=== PATIENT | female | born 1970 | race Caucasian/White ===

== ENCOUNTER → 2018-06-01 10:10 | Outpatient (CLI) | payer OTHER, SELFPAY ==
--- NOTE | 2018-06-01 10:19 | RAD_ITS ---
STUDY: X-RAY - RIGHT CALCANEUS REASON FOR EXAM: Female, 48 years old. Trauma TECHNIQUE: 2 view(s) of the calcaneus were obtained. COMPARISON: None. FINDINGS: Normal visualized calcaneus. RAD/Calcaneus min 2 Views IMPRESSION: Normal x-ray examination of the calcaneus. Electronically Signed: Velasquez Jordan MD at 17:15 EDT , Service support ,
== END ==
PROVIDERS: Family Provider Family Medicine; PCP Family Medicine; Referring Provider Family Medicine; Visit Provider Family Medicine
DX: M79.673 Pain in unspecified foot (principal)
CPT/HCPCS: 73650

== ENCOUNTER → 2018-07-08 15:15 | Outpatient (CLI) | payer OTHER, SELFPAY ==
[2018-07-08 17:46] LABS: Vitamin D,25 Hydroxy 12.8 ng/mL (29.95-100.01)
[2018-07-08 17:50] LABS: Anion Gap 8 (5-15); BUN 15 mg/dL (7-18); BUN/Creat Ratio 20.5 RATIO (10-20); Calcium,Total 8.4 mg/dL (8.5-10.1); Chloride 105 mmol/L (98-107); Cholesterol 174 mg/dL (200); Creatinine, Serum 0.73 mg/dL (0.55-1.02); EST Glomerular Filtration Rate 90 mL/min (>60); Est Glom Filt Rate - Afr Amer 109 mL/min (>60); Glucose 90 mg/dL (74-106); High Density Lipoprotein 60 mg/dL; Potassium 4.2 mmol/L (3.5-5.1); Sodium Level 140 mmol/L (136-145); Thyroid Stim Hormone (TSH) 1.11 uIU/mL (0.358-3.74); Triglycerides 238 mg/dL; Very Low Density Lipoprotein 48 mg/dL (5-40)
== END ==
PROVIDERS: Family Provider Family Medicine; PCP Family Medicine; Visit Provider Family Medicine
DX: Z00.00 Encounter for general adult medical examination without abnormal findings (principal)
CPT/HCPCS: 36415; 80048; 80061; 82306; 84443

== ENCOUNTER → 2018-07-08 19:00 | Outpatient (CLI) | payer OTHER, SELFPAY ==
[2018-07-13 10:53] LABS: HPV Reflexed? NOT INDICATED
== END ==
PROVIDERS: Family Provider Family Medicine; PCP Family Medicine; Referring Provider Family Medicine; Visit Provider Family Medicine
DX: Z01.419 Encounter for gynecological examination (general) (routine) without abnormal findings (principal)
CPT/HCPCS: 88175; G0145

== ENCOUNTER → 2018-08-25 14:51 | Outpatient (CLI) | payer OTHER, SELFPAY ==
[2016-02-09 14:07] VITALS: BMI 23.1
--- NOTE | 2018-08-25 14:54 | BI_ITS ---
MAMMOGRAPHY - BILATERAL SCREENING 3-D FRIDA SYNTHESIS REASON FOR EXAM: Female, 48 years old. Bilateral Screening 3-D tomosynthesis PERTINENT HISTORY: No significant family history. TECHNIQUE: 2-D mammograms and 3-D Frida synthesis of the breast (s) were performed. CAD was performed. COMPARISON: December 04, 2009 FINDINGS: The breast composition is almost entirely fat. There are stable lymph nodes. Scattered benign calcifications are seen. No dense spiculated masses or suspicious microcalcifications are identified. No architectural distortion is identified. There is no skin thickening or retraction. There has been no significant change since the prior study. BI/SCREENING MAMM (CAD), BILAT IMPRESSION: No mammographic signs of malignancy. Routine yearly mammograms recommended. ASSESSMENT CATEGORY: BIRADS Category 2: Benign. A letter regarding these results will be sent to the patient by the facility within 30 days. FOLLOW UP RECOMMENDATION: Yearly follow up mammogram recommended. (A) Approximately 10% of breast cancers are not detected by mammography. A normal mammogram should not delay biopsy of a clinically suspicious abnormality. Electronically Signed: Keith Valle MD at 10:32 EST , Service support ,
== END ==
PROVIDERS: Family Provider Family Medicine; PCP Family Medicine; Visit Provider Family Medicine
DX: Z12.31 Encounter for screening mammogram for malignant neoplasm of breast (principal)
CPT/HCPCS: 77063; 77067

== ENCOUNTER → 2019-02-25 | Outpatient (CLI) | payer OTHER, SELFPAY ==
--- NOTE | 2019-02-25 07:44 | MRI_ITS ---
STUDY: MRI RIGHT SHOULDER REASON FOR EXAM: Female, 48 years old. Lifting injury 6 months ago with right shoulder pain radiating into forearm and neck. Limited range of motion. TECHNIQUE: Standardized fat and water weighted pulse sequences were obtained in all 3 orthogonal planes. COMPARISON: None. FINDINGS: Full thickness full width retracted supraspinatus tendon tear with the tendon retracted approximately 4 cm medially (coronal series 6 images 12-16). Infraspinatus tendinosis with full-thickness partial width tear of the anterior fibers with marked thinning/attenuation of the posterior fibers (coronal series 6 images 7-10). Subscapularis tendinosis without a full-thickness tear (axial series 3 images 10-14). Normal teres minor tendon. Normal supraspinatus muscle. Normal infraspinatus muscle. Normal subscapularis muscle. Normal teres minor muscle. Moderate arthrosis of the glenohumeral joint with a large glenohumeral joint effusion (axial series 3 image 10-16). Cystic change in the humeral head (coronal series 6 image 9). Superior migration of the humeral head (coronal series 6 image 13). Normal biceps labral complex. Normal intracapsular long biceps tendon. Normal labrum. Normal capsulo- ligamentous complex. Normal rotator interval. Acromioclavicular joint hypertrophy with narrowing of the subacromial space (coronal series 6 images 11-15). There is a Type II morphology (curved), with a neutral orientation. Fluid in the subacromial-subdeltoid bursa (coronal series 6 images 7-15). Normal visualized coracohumeral and coracoacromial ligaments. Normal quadrilateral space. Normal axillary space. Normal deltoid muscle. Normal trapezius muscle. MRI/Upper Ext Joint Only(Routine) IMPRESSION: Full thickness full width retracted supraspinatus tendon tear. Infraspinatus tendinosis with a full-thickness partial width tear of the anterior fibers and marked thinning/attenuation of the posterior fibers. Subscapularis tendinosis without a full-thickness tear. Moderate arthrosis of the glenohumeral joint. Superior migration and cystic change of the humeral head. Acromioclavicular joint hypertrophy with narrowing of the subacromial space. Large glenohumeral joint effusion with fluid in the subacromial-subdeltoid bursa. Electronically Signed: Keith Valle MD at 13:58 EDT , Service support ,
== END | disposition home or self-care (01) ==
LOC: MRI 07:40
PROVIDERS: Family Provider Family Medicine; PCP Family Medicine; Referring Provider Family Medicine; Visit Provider Family Medicine
DX: M25.511 Pain in right shoulder (principal)
CPT/HCPCS: 73221

== ENCOUNTER 2019-03-05 17:08 | Emergency (ER) | payer OTHER, SELFPAY ==
[2019-03-05 17:09] VITALS: BP 136/86; PULSE 104; RESP 18; TEMP 36.9; O2SAT 98; BMI 28.2
--- NOTE | 2019-03-05 17:20 | ED.RN ---
PT REPORTS STARTED YESTERDAY. REDDNESS 3 INCHES TALL AND WRAPPS AROUND ANKLE. SWELLING REDDNES WITH DEEP RED SPOTS.
--- NOTE | 2019-03-05 17:28 | ED.DCSUM_ITS ---
- ER Visit Summary Date of Service: 03/05/19 Chief Complaint: [Redness and swelling to right leg] History of Present Illness: The patient is a 48 F [presents to the emergency department with redness to her leg that started yesterday. Patient states initially she had some edema but that is since resolved. She denies recent travel or surgery. She denies any trauma to her leg. Patient states that she has had cellulitis in that leg before and it reminds her of that event. Patient was working in the yard yesterday however she denies coming in contact with any weeds or poison lakshmi. Patient has not had a fever at home although subjectively she is felt somewhat warm and chilled. Patient claims allergy to Keflex from the time she was a child and she is not really sure exactly what the reaction was.] Physical Examination: [HEENT-PERRLA, EOMI. Cranial nerves II through XII hang sly intact. TMs clear. Mucous membranes moist. No adenopathy. Cardiovascular-regular rate and rhythm without murmur or ectopy Lungs-clear to auscultation, chest wall stable without crepitus or subcu emphysema Abdomen-normoactive bowel sounds, soft, nontender, no rebound or rigidity, no peritoneal signs. Extremities-intact ?4, normal range of motion, normal pulses, atraumatic. Right leg-patient has erythema to the distal third of the right lower leg and ankle. There is warmth noted. No edema is noted. No abscess noted. She is neurovascular intact.] Test Results: [None indicated] Emergency Department Course and Treatment: [Patient was given a dose of clindamycin p.o. Patient is not ill or toxic appearing therefore I feel we can manage this initially as an outpatient. Patient had the area of erythema outlined in permanent marker. Patient was advised to return if fever, increased pain, or extension of the erythema beyond the line of demarcation.] Treatment Plan: [Patient will be treated with clindamycin and advised to follow- up with her primary care physician within the next 2 to 3 days for wound check. Patient to return if fever, worsening pain, increased erythema, or conditions worsen anyway.] Disposition: [Discharged home in stable condition.] Impression: [Cellulitis right lower extremity] This note was generated with [employer] dictation software. It may contain incorrect words, spelling, and punctuation that were not noted in review of the chart prior to signing ED Disposition - Plan for ED Patient: Referrals: Escobar Farias MD [Primary Care Provider] -
--- NOTE | 2019-03-05 17:31 | ED.DEP ---
ED Disposition - Plan for ED Patient: Instructions: Cellulitis Prescriptions: Clindamycin HCl [Cleocin] 300 mg PO Q6H #40 cap Prescription Printed Referrals: Escobar Farias MD [Primary Care Provider] - 2 Days
[2019-03-05] MEDS: Clindamycin HCl 150 MG Capsule 300 MG PO (17:38)
== END 2019-03-05 17:40 | disposition home or self-care (01) ==
LOC: ED 17:36
PROVIDERS: Emergency Provider Emergency Medicine; Family Provider Family Medicine; PCP Family Medicine
DX: L03.115 Cellulitis of right lower limb (principal); K21.9 Gastro-esophageal reflux disease without esophagitis; Z72.0 Tobacco use; Z79.899 Other long term (current) drug therapy
CPT/HCPCS: 99283

== ENCOUNTER 2022-12-11 16:45 | Emergency (ER) | payer OTHER, SELFPAY ==
[2022-12-11 16:46] VITALS: BP 122/76; PULSE 70; RESP 16; TEMP 36.6; O2SAT 99; BMI 27.1
--- NOTE | 2022-12-11 17:11 | EDS_ITS ---
HPI History of Present Illness HPI Narrative: Patient presents with right knee, thigh, and hip pain that began after a fall last night. Patient states she was at work when she slipped on the wet ground and twisted her knee and hip. Patient describes her pain as aching. Patient states her pain is worse with weightbearing and with internal rotation. Patient states it is better with external rotation. Patient denies any paresthesias or weakness. Patient denies any head injury or loss of consciousness. Patient denies any other injuries. Chief Complaint: Lower Extremity Injury Informant: patient Onset/Context/Timing Onset: Yesterday Context: Sudden Onset Timing: Continuous Quality of Pain: Aching Location: Right knee, thigh, and right hip Worsened by: Weightbearing, internal rotation Relieved by: External rotation Associated Symptoms Associated Symptoms: Negative for Parasthesia, Weakness or Loss of Funtion PFSH PFSH Home Medications cyanocobalamin (vitamin B-12) 2,500 mcg tablet 2,500 mcg PO DAILY 02/09/16 [History Last Taken Unknown] omeprazole 40 mg capsule,delayed release 40 mg PO DAILY 02/09/16 [History Last Taken Unknown] clindamycin HCl 300 mg capsule 300 mg PO Q6H #40 caps 03/05/19 [Rx Last Taken Unknown] naproxen 500 mg tablet (Naprosyn) 500 mg PO BID PRN pain #20 tabs 12/11/22 [Rx Last Taken Unknown] Allergy/AdvReac Type Severity Reaction Status Date / Time cephalexin monohydrate Allergy Other Verified 12/11/22 16:51 [From Keflex] Surgical History History of appendectomy Hx laparoscopic cholecystectomy muscle transfer Social History Smoking Status: Current every day smoker tobacco type: cigarettes ROS ROS ED Constitutional Constitutional ED: Denies chills or fever(s) Eyes Eyes: Denies blurry vision or change in vision ENT ENT ED: Denies rhinorrhea or sore throat Cardiovascular Cardiovascular: Denies chest pain or palpitations Respiratory/Chest Respiratory/Chest: Denies cough or dyspnea Gastrointestinal Gastrointestinal: Denies nausea or vomiting Genitourinary Genitourinary ED: Denies dysuria or hematuria Musculoskeletal Musculoskeletal: Denies back pain or neck pain Integumentary Denies abscess or rash Neurologic Neurologic: Denies headache(s) or weakness Allergic/Immunologic Allergic/Immunologic ED: Denies mouth swelling or urticaria EXAM Physical Exam Const Vital Signs: 12/11/22 16:46 Temperature 97.8 F Temperature Source Temporal Pulse Rate 70 Respiratory Rate 16 Blood Pressure 122/76 H Blood Pressure Mean 91 Pulse Ox 99 Oxygen Delivery Method Room Air Positive well nourished and well developed General Appearance ED: well developed HEENT Reports moist mucous membranes Neck full ROM and supple Extremity Extremity Narrative: There is tenderness over the right knee and distal thigh. There is also some mild tenderness over the right hip. There is no obvious deformity noted. There is some pain with internal rotation of the right lower extremity. There is also pain with flexion of the knee. There is no bony crepitance or step-off. Pedal pulses are equal bilaterally. Sensation was intact to light touch bilaterally in the lower extremities. Strength is 5/5 bilaterally in the lower extremities. Neuro oriented x3, CN's II-XII intact bilaterally, moves all extremities and no sensory deficits noted Sensorium / Orientation: alert Motor Exam: strength 5/5 throughout Psych mental status grossly normal Skin no wounds MDM MDM MDM Narrative Medical decision making narrative: Differential diagnosis includes right knee sprain, internal derangement of the knee, fracture, right hip fracture, right hip strain, and right thigh strain. X-rays of the right knee and right hip will be obtained to assess for fracture. Radiography Diagnostic Testing: Clinical Impression(s) from Imaging Studies Knee X-Ray 12/11/22 17:16 IMPRESSION: No acute fracture or dislocation of the right knee. Electronically Signed: Andrea Bass DO at 18:03 EDT Reading Location ID and State: [employer] [facility] [employer] Tel [phone], Service support , Hip/Pelvis X-Ray 12/11/22 17:46 IMPRESSION: Normal x-ray examination of the pelvis and right hip. Electronically Signed: Andrea Bass DO at 18:02 EDT Reading Location ID and State: [employer] / [place] Tel [phone], Service support , X-rays of the right knee were obtained. There are 4 views. On my independent interpretation, there is no acute fracture. There is no dislocation. There is no soft tissue swelling. Radiologist also interpreted the x-rays and agrees. X-rays of the right hip were obtained. There are [3] views. On my independent interpretation, there is no acute fracture. There is no dislocation. There is no soft tissue swelling. Radiologist also interpreted the x-rays and agrees. Treatment and Re-Evaluation Narrative: Patient was advised of her findings. Patient was advised that this is most likely a muscular strain. Patient was instructed to use ice to the area. Patient was given crutches. Patient was given a prescription for Naprosyn. Patient was instructed to follow-up with her primary care physician in 5 to 7 days. Patient was also instructed to follow-up with the [facility] in case her primary care physician does not accept Workmen's Comp. Patient understands and is agreeable with the plan. All questions were answered. Discharge Plan Triage Chief Complaint: Lower Extremity Injury ED Provider: Danial Henderson Dx/Rx/DC Orders Clinical Impression: Right knee sprain, Strain of right hip, Fall Instructions: ED Hip Strain, ED Knee Sprain Prescriptions: New naproxen [Naprosyn] 500 mg tablet 500 mg PO BID PRN (Reason: pain) Qty: 20 0RF No Action omeprazole 40 MG capsule 40 mg PO DAILY cyanocobalamin (vitamin B-12) 2,500 MCG tablet 2,500 mcg PO DAILY clindamycin HCl 300 MG capsule 300 mg PO Q6H Qty: 40 0RF Primary Care Provider: Escobar Farias Referrals: Escobar Farias MD [Primary Care Provider] - 5-7 Days [facility] [Non-Staff] - 5-7 Days Disposition Disposition: Home, Self Care
--- NOTE | 2022-12-11 17:16 | RAD_ITS ---
STUDY: X-RAY - RIGHT KNEE REASON FOR EXAM: Female, 52 years old. Fall last night. Knee pain. 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 TECHNIQUE: 4 view(s) of the knee. COMPARISON: None. FINDINGS: Normal visualized distal femur. Normal visualized proximal tibia and fibula. Normal proximal tibiofibular articulation. There is no acute fracture, dislocation or destructive osseous pathology. Normal medial femorotibial compartment. Normal lateral femorotibial compartment. Normal patellofemoral articulation. There are surgical clips posterior to the tibial plateau. The soft tissues appear otherwise unremarkable. RAD/Knee 4 or More Views IMPRESSION: No acute fracture or dislocation of the right knee. Electronically Signed: Andrea Bass DO at 18:03 EDT ,
--- NOTE | 2022-12-11 17:46 | RAD_ITS ---
STUDY: X-RAY - PELVIS AND RIGHT HIP REASON FOR EXAM: Female, 52 years old. Fall last night. Right hip and knee pain. TECHNIQUE: 3 views of the pelvis and hip. COMPARISON: None. FINDINGS: There is a non-specific bowel gas pattern. Normal visualized soft tissue structures. Normal bilateral iliac wings, sacroiliac joints and visualized sacrum. Normal bilateral superior and inferior pubic rami. Normal pubic symphysis. Normal bilateral ischial tuberosities. Normal left hip. Normal visualized right femoral head. Normal right acetabulum. Normal right hip joint. RAD/HIP, UNI W/ Pelvis 2-3 Views IMPRESSION: Normal x-ray examination of the pelvis and right hip. Electronically Signed: Andrea Bass DO at 18:02 EDT ,
[2022-12-11 19:29] VITALS: PULSE 82; RESP 16; O2SAT 98
== END 2022-12-11 19:29 | disposition home or self-care (01) ==
PROVIDERS: Emergency Provider Emergency Medicine; PCP Family Medicine; Visit Provider Emergency Medicine
DX: S83.91XA Sprain of unspecified site of right knee, initial encounter (principal); S73.101A Unspecified sprain of right hip, initial encounter; M79.651 Pain in right thigh; F17.210 Nicotine dependence, cigarettes, uncomplicated; W01.0XXA Fall on same level from slipping, tripping and stumbling without subsequent striking against object, initial encounter; Y99.0 Civilian activity done for income or pay
CPT/HCPCS: 73502; 73564; 99283

== ENCOUNTER 2023-11-16 21:10 | Emergency (ER) | payer MEDICAID, SELFPAY ==
[2023-11-16 21:11] VITALS: BP 152/89; PULSE 86; RESP 15; TEMP 36.6; O2SAT 100; BMI 23.3
--- NOTE | 2023-11-16 22:10 | RAD_ITS ---
EXAM: XR LEFT ELBOW COMPLETE, 3 OR MORE VIEWS CLINICAL INDICATION: pain TECHNIQUE: Frontal, lateral and oblique views of the left elbow. COMPARISON: No relevant prior studies available. FINDINGS: BONES/JOINTS: Unremarkable. There is no displacement of the anterior or posterior fat pads. No acute fracture. No subluxation. Normal alignment. Preservation of the joint space. No destructive or sclerotic lesions. SOFT TISSUES: Unremarkable. No soft tissue swelling or gas. No radiopaque foreign body. RAD/Elbow min 3 Views IMPRESSION: Negative left elbow. Electronically Signed: Selvin Cash MD at 22:21 EDT ,
--- NOTE | 2023-11-16 22:10 | EDS_ITS ---
HPI History of Present Illness Chief Complaint: Upper Extremity Injury Informant: patient Narrative Narrative: 53-year-old female presenting to the emergency room with left forearm elbow pain. 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 She began to have some pain in the lateral posterior left forearm extending just to the posterior aspect of the distal arm. She has pain with pronation supination. She states she was doing conservative treatments at home with ice and heat. Last week she used a pair staple gun requiring her to do a lot of squeezing the hand. Over the weekend she had increased pain. She is co ncerned she may have a fracture. [facility] Medical History (Updated 11/16/23 @ 22:[address] Elpidio Iniguez DO) History of gastroesophageal reflux (GERD) Home Medications cyanocobalamin (vitamin B-12) 2,500 mcg tablet 2,500 mcg PO DAILY 02/09/16 [History Last Taken Unknown] omeprazole 40 mg capsule,delayed release 40 mg PO DAILY 02/09/16 [History Last Taken Unknown] clindamycin HCl 300 mg capsule 300 mg PO Q6H #40 caps 03/05/19 [Rx Last Taken Unknown] naproxen 500 mg tablet (Naprosyn) 500 mg PO BID PRN pain #20 tabs 12/11/22 [Rx Last Taken Unknown] ibuprofen 600 mg tablet 600 mg PO Q8H #21 TABLETS 11/16/23 [Rx Last Taken Unknown] Allergy/AdvReac Type Severity Reaction Status Date / Time cephalexin monohydrate Allergy Other Verified 11/16/23 21:13 [From Keflex] Surgical History History of appendectomy Hx laparoscopic cholecystectomy muscle transfer Social History Smoking Status: Current every day smoker tobacco type: cigarettes ROS ROS ED Constitutional Constitutional ED: Denies chills or weight loss Eyes Eyes: Denies change in vision or diplopia ENT ENT ED: Denies ear pain, rhinorrhea or sore throat Cardiovascular Cardiovascular: Denies chest pain, orthopnea, palpitations or racing heartbeat Respiratory/Chest Respiratory/Chest: Denies cough, dyspnea or orthopnea Gastrointestinal Gastrointestinal: Denies abdominal pain, diarrhea, nausea or vomiting Genitourinary Genitourinary ED: Denies dysuria, hematuria or urinary frequency Musculoskeletal Musculoskeletal: Reports other Details: See history of present illness ; Denies arthralgias, back pain, myalgias or neck pain Integumentary Denies abscess or rash Neurologic Neurologic: Denies headache(s) or weakness Psychiatric Psychiatric: Denies anxiety, depression, suicidal ideation or suicidal thoughts Endocrine Endocrinology: Denies polydipsia, polyphagia or polyuria Allergic/Immunologic Allergic/Immunologic ED: Denies mouth swelling, tongue swelling or urticaria EXAM Physical Exam Const Vital Signs: 11/16/23 21:11 Temperature 97.8 F Temperature Source Temporal Pulse Rate 86 Respiratory Rate 15 Blood Pressure 152/89 H Blood Pressure Mean 110 Pulse Ox 100 Oxygen Delivery Method Room Air Positive well nourished and well developed General Appearance ED: well developed HEENT Reports normocephalic, head/scalp atraumatic and moist mucous membranes Eyes PERRL and EOMs intact bilaterally Neck no lymphadenopathy, supple and no JVD Resp normal respiratory effort and clear to auscultation bilaterally Cardio regular rate, regular rhythm and no murmurs GI normal to inspection, nondistended, normoactive bowel sounds and non-tender Palpation: soft Back/Spine no CVA tenderness and normal ROM Extremity Extremity Narrative: Left arm is neurovascularly intact with strong radial and ulnar pulses. Sensations normal. She has tenderness along the brachial radialis tendon and muscle belly most significant in the distal belly but also some tenderness near the insertion of the muscle. There is no significant edema of the hand. Normal capillary refill. General Extremety ED: Negative for edema General Extremity: Negative for edema Neuro oriented x3 and CN's II-XII intact bilaterally Sensorium / Orientation: alert Motor Exam: strength 5/5 throughout Psych mental status grossly normal Mood & Affect: Negative for depressed or tearful Skin no rashes or lesions noted and no wounds MDM MDM MDM Narrative Medical decision making narrative: My independent interpretation of the plain films of the three-view elbow x-ray is no acute fracture. Radiology overread concurs. Clinically I think this is b rachial radialis tendinitis. We talked about rest ice compression stretching and conservative treatment. Is most likely going to be difficult for her to rested given her job. If conservative treatments not working she may benefit from physical therapy or orthopedic follow-up. She can follow-up with her primary care doctor to see how this is progressing History & Record Review Discussion w/independent historian: Patient Discharge Plan Triage Chief Complaint: Upper Extremity Injury ED Provider: Elpidio Iniguez Dx/Rx/DC Orders Clinical Impression: Left forearm pain, Left elbow tendinitis Instructions: ED Tendonitis Prescriptions: New ibuprofen 600 mg tablet 600 mg PO Q8H Qty: 21 0RF Rx Instructions: take with food No Action omeprazole 40 MG capsule 40 mg PO DAILY cyanocobalamin (vitamin B-12) 2,500 MCG tablet 2,500 mcg PO DAILY clindamycin HCl 300 MG capsule 300 mg PO Q6H Qty: 40 0RF naproxen [Naprosyn] 500 mg tablet 500 mg PO BID PRN (Reason: pain) Qty: 20 0RF Primary Care Provider: Care Physician,No Primary Referrals: Escobar Farias MD [Med Staff - Active Staff] - 1-2 Weeks Activity Restrictions/Additional Instructions: Today I feel you have a brachialradialis tendinitis. Home treatment as we discussed. You may benefit from a stabilizer strap (look for tennis elbow treatments) Disposition Disposition: Home, Self Care
--- OUTSIDE RECORDS SUMMARY | 2023-11-16 22:26 | XMS RPT_ITS | CCD ---
Author Name Unknown Address [address] [place] [id number] Organization [facility] Care Team Providers Care Call Center Dispatcher Name Role Phone Unavailable Primary Care Provider JEANNINE Portillo Attending Unavailable Allergies Allergy Classification Reported Allergen(s) Allergy Type Date of Onset Reaction(s) Facility (2 sources) Cephalexin; Translations: [CEPHALEXIN] Drug Allergy 12-11-2022 Other: See Comments [facility] Medications Current Medications Medication Drug Class(es) Dates Sig (Normalized) Sig (Original) nitrofurantoin, macrocrystals 25 mg / nitrofurantoin, monohydrate 75 mg oral capsule (1 source) Nitrofuran Antibacterial Start: 08-11-2023 End: 08-18-2023 take 1 capsule by mouth twice daily nitrofurantoin monohydrate and macrocrystal (MACROBID) 100 mg capsule Indications: Dysuria Take 1 capsule by mouth two times a day for 7 days. 14 capsule 0 08/11/2023 08/18/2023 Active Completed/Discontinued Medications Medication Drug Class(es) Dates Sig (Normalized) Sig (Original) FLUoxetine 40 mg oral capsule (1 source) Serotonin Reuptake Inhibitor take 1 capsule by mouth once daily FLUoxetine (PROZAC) 40 mg capsule Take 40 mg by mouth once daily. 0 Active Problems Problem Classification Problem Date Documented Da te Episodic/Chronic Genitourinary symptoms and ill-defined conditions (1 source) Dysuria; Translations: [Dysuria] Onset: 08-09-2023 Episodic Results Test Name Value Interpretation Reference Range Facil ity Encounters Encounter Date Encounter Type Care Provider Facility Start: 08-11-2023 Telephone encounter Yariel Whitehead MD Work Phone: [facility] Plan of Treatment Date Care Activity Detail Author Start: 07-08-2028 Urine microalbumin profile DTa P,Tdap,Td Vaccine (2 - Td or Tdap) [facility] Start: 05-08-2023 Covid-19 Vaccine ( season) Covid-19 Vaccine ( season) [facility] Start: 05-08-2023 Influenza vaccination Influenza Vacc ine (#1) [facility] Start: 09-07-2022 Depression Assessment Depression Ass essment [facility] Start: 2020 Shingrix Vaccine (1 of 2) Shingrix V accine (1 of 2) [facility] Start: 2015 Cologuard (FIT-DNA) Cologuard (FIT-D NA) [facility] Start: 2015 Colonoscopy Colonoscopy [facility] Start: 2015 Colorectal Cancer Screening Colorectal Cancer Screening [facility] Start: [address] Colonography [facility] Start: 2015 Diabetes Screening Diabetes Screenin g [facility] Start: 2015 Fecal Occult Blood Fecal Occult Bloo d [facility] Start: 2015 Lipid 1996 panel - S jigna or Plasma Lipid Screening [facility] Start: 2015 Sigmoidoscopy Sigmoidoscopy [facility] Start: 2010 Mammography Mammogram Screening [facility] Start: 2000 HPV Testing HPV Testing [facility] Start: 1991 Pap Testing Pap Testing [facility] Start: 1988 Hepatitis C Screening Hepatitis C Sc reening [facility] Start: 1988 HIV Screening HIV Screening [facility] Start: 1976 Pneumococcal vaccination Pneum ococcal Vaccine (1 - PCV) [facility] Start: 1970 Hepatitis B Vaccine (1 of 3 - 3-dose series) Hepatitis B Vaccine (1 of 3 - 3-dose series) [facility] Immunizations Immunization Date Immunization Notes Care Provider Liz daly 07-08-2018 influenza virus vacc ine, unspecified formulation Yariel Whitehead MD Work Phone: [facility] Payers Date Payer Category Payer Private Health Insurance [employer] [id number] 2020-Present [phone] [address] [address] [place] [address] HMO [id number] 2020 Unknown [id number] Social History Date Type Detail Facility Start: 08-09-2023 Tobacco smoking stat us NHIS Occasional tobacco smoker [facility] History of tobacco use Cigarette Smoker [facility] Start: 08-09-2023 Tobacco use and exposure User of smo keless tobacco [facility] Start: 08-09-2023 Alcohol intake Current drinke r of alcohol (finding) [facility] Start: 08-09-2023 History of Social function [facility] Start: 08-09-2023 Tobacco use panel [facility] Adult Depression Screening Assessment 2 [facility] Start: 08-09-2023 [facility] Start: 1970 Sex Assigned At Not on file [facility] Note 08-11-2023 Telephone Encounter - Key Hernandez LPN - 08/11/2023 8:55 PM EST Note Date & Type Note Facility 08-11-2023 Miscellaneous Notes Formattin g of this note might be different from the original. Attempted to call patient, no answer. Please notify of a change in patient's antibiotic due to UTI resistance. New prescription has been sent into patient's pharmacy. Key Hernandez LPN documented in this encounter [facility] Progress note 08-09-2023 Note Date & Type Note Facility 08-09-2023 Note HNO ID: [id number] Author: Jeannine Ann APRN.[employer] Service: ? Author Type: Nurse Practitioner Type: Progress Notes Filed: 08/09/2023 1:39 PM Note Text: Rayna Choi is a 53 year old female who presents with Urinary Problem (Pain/frequency with urination for 7 days), Fever (102.8 for a few days), Abdominal Pain, and Back Pain Duration: 7 days Burning with urination: Yes Blood in urine: No Urinating frequently: Yes Feel like has to go but when tries to go not much urine comes out: Yes Urgency--has to go right away or will have an accident: Yes Urinating at night: No Abdominal pain: Yes If abdominal pain, where is it located: suprapubic Back Pain: Yes Fever: Yes, patient reports fever 102.84 days ago no fever in the last 3 days. Nausea: No Vomiting:No History of UTIs: Yes History reviewed. No pertinent past medical history. There is no problem list on file for this patient. Current Outpatient Medications Medication Sig Dispense Refill FLUoxetine (PROZAC) 40 mg capsule Take 40 mg by mouth once daily. No current facility-administered medications for this visit. Social History Tobacco Use Smoking status: Some Days Types: Cigarettes Smokeless tobacco: Current Tobacco comments: vape Substance Use Topics Alcohol use: Yes Drug use: Never Alcohol Use: Yes Tobacco Use: Types: Cigarettes History reviewed. No pertinent family history. Review of Systems Constitutional: Positive for chills, fever and malaise/fatigue. Respiratory: Negative for shortness of breath. Cardiovascular: Negative for chest pain. Gastrointestinal: Negative for abdominal pain. Genitourinary: Positive for dysuria, frequency and urgency. Negative for flank pain and hematuria. Neurological: Negative for dizziness and headaches. BP 126/90 Pulse 103 Temp (Src) 98.2 (Temporal) Resp 15 Wt 149 lb (67.6kg) SpO2 98% Physical Exam Vitals and nursing note reviewed. Constitutional: Appearance: Normal appearance. HENT: Head: Normocephalic and atraumatic. Eyes: Conjunctiva/sclera: Conjunctivae normal. Cardiovascular: Rate and Rhythm: Normal rate and regular rhythm. Pulmonary: Effort: Pulmonary effort is normal. Breath sounds: Normal breath sounds. Abdominal: General: Abdomen is flat. Palpations: Abdomen is soft. Tenderness: There is no abdominal tenderness. There is no right CVA tenderness or left CVA tenderness. Skin: General: Skin is warm and dry. Neurological: General: No focal deficit present. Mental Status: She is alert. Mental status is at baseline. Psychiatric: Mood and Affect: Mood normal. Behavior: Behavior normal. ASSESSMENT/PLAN: 1. Dysuria - ICD9: 788.1, ICD10: R30.0 - Patient education for prevention given - URINALYSIS, DIPSTICK ONLY - URINE CULTURE - CIPROFLOXACIN 500 MG TABLET History, examination, and urine dipstick result are consistent with uncomplicated UTI without evidence of pyelonephritis or sepsis. Patient will be given Cipro antibiotic therapy and cultures pending. Return to clinic or present to ED if symptoms change or worsen. Otherwise follow with PCP in 5-7 days for recheck. Jeannine Ann APRN.[facility] Summary Purpose Family History No Family History Records FoundNo Family History Records Found Advance Directives No Advanced Directives Records FoundNo Advanced Directives Records Found Additional Source Comments INFORMATION SOURCE (unrecogn ized section and content) DATE CREATED AUTHOR AUTHOR'S ORGANIZ ATION 08/15/2023 [facility] nter Source Comments (unrecognize d section and content) In the event this informatio n is protected by the Federal Confidentiality of Alcohol and Drug Abuse Patient Records regulations: The Federal rules restrict any use of the information to criminally investigate or prosecute any alcohol or drug abuse patient.[facility] Reason for Visit (unrecogniz ed section and content) FOR RECORDS PERTAINING TO PATIENTS WHO ARE OR HAVE BEEN ENROLLED IN A CHEMICAL DEPENDENCY/SUBSTANCEABUSE PROGRAM, SOME INFORMATION MAY BE OMITTED. This clinical summary was aggregated from multiple sources. Caution should be exercised in using it in the provision of clinical care. This summary normalizes information from multiple sources, and as a consequence, information in this document may materially change the coding, format and clinical context of patient data. In addition, data may be omitted in some cases. CLINICAL DECISIONS SHOULD BE BASED ON THE PRIMARY CLINICAL RECORDS. [facility] [facility]. provides no warranty or guarantee of the accuracy or completeness of information in this document.
== END 2023-11-16 22:47 | disposition home or self-care (01) ==
LOC: ED 22:24
PROVIDERS: Emergency Provider Emergency Medicine; Visit Provider Emergency Medicine
DX: M77.8 Other enthesopathies, not elsewhere classified (principal); M79.632 Pain in left forearm; F17.210 Nicotine dependence, cigarettes, uncomplicated
CPT/HCPCS: 73080; 99282